=== PATIENT | male | born 1960 | race Caucasian/White ===

== ENCOUNTER 2020-12-31 16:39 | Emergency (ER) | payer OTHER ==
[~2020-12-31] VITALS: Ht 172.7 cm; Wt 86.2 kg
[~2020-12-31 16:39] MED LIST: METOPROLOL SUCC25 M1 PO; NEURONTIN 300300 M1 PO; NEXIUM40 MG PO; NORVASC10 MG PO; OXYCONTIN10 M1 PO; ROXICODONE15 M1 PO; SERTRALINE HCL50 MG PO; TOPROL XL25 MG PO
[2020-12-31 17:11] LABS: ABSOLUTE NEUTROPHILS 3.2 thou/uL (1.4-8.2); BASOPHILS 1.6 % (0.0-2.0); EOSINOPHILS 8.5 % (0.0-3.0); HEMATOCRIT 31.6 % (42.0-52.0); HEMOGLOBIN 9.9 gm/dL (14.0-18.0); LYMPHOCYTES 25.2 % (24.0-44.0); MCH 31.8 pg (26.0-34.0); MCHC 31.2 g/dL (28.0-37.0); MCV 101.9 fL (80.0-100.0); PLATELET COUNT 218 thou/uL (150-400); POLYS 53.7 % (36.0-66.0); WBC 5.9 thou/uL (4.0-11.0)
[2020-12-31 17:18] LABS: CALCIUM 8.7 mg/dL (8.5-10.1); CREATININE 7.9 mg/dL (0.7-1.3); POTASSIUM 4.9 mmol/L (3.5-5.1)
[2020-12-31 18:19] VITALS: BP 123/78
== END 2020-12-31 18:21 | disposition home or self-care (01) ==
LOC: ER 16:39
PROVIDERS: Emergency Medicine
DX: I12.0 Hypertensive chronic kidney disease with stage 5 chronic kidney disease or end stage renal disease (principal); N18.6 End stage renal disease; E11.22 Type 2 diabetes mellitus with diabetic chronic kidney disease; I48.91 Unspecified atrial fibrillation; G89.29 Other chronic pain; M54.9 Dorsalgia, unspecified; Z99.2 Dependence on renal dialysis; Z86.73 Personal history of transient ischemic attack (TIA), and cerebral infarction without residual deficits; Z88.1 Allergy status to other antibiotic agents; Z91.013 Allergy to seafood; Z88.0 Allergy status to penicillin; Z88.2 Allergy status to sulfonamides; Z91.018 Allergy to other foods